=== PATIENT | female | born 1955 | race Caucasian/White ===

== ENCOUNTER 2024-03-07 17:17 | Observation (INO) | payer SELFPAY ==
[~2024-03-07] VITALS: Ht 170.2 cm; Wt 98.6 kg
[2024-03-07] MEDS ORDERED: NS 1,000 ML IV ONE (17:30)
[2024-03-07 17:38] LABS: BASO % 0.3 % (0.0-2.0); EOS # 0.1 K/mm3 (0.0-0.7); GRAN # 5.7 K/mm3 (1.4-6.5); GRAN % 61.3 % (42.2-75.2); HEMATOCRIT 50.1 % (37.0-47.0); LYMPH # 2.7 K/mm3 (1.2-3.4); LYMPH % 29.7 % (20.0-51.0); MEAN CELL VOLUME 89 fl (80.0-100.0); MEAN CORPUSCULAR HEMOGLOBIN 29 pg (27-31); MEAN CORPUSCULAR HGB CONC 32 g/dl (33.0-37.0); MEAN PLATELET VOLUME 9.2 fl (7.4-10.4); MONO # 0.7 K/mm3 (0.1-0.6); MONO % 7.3 % (1.7-9.3); PLATELET COUNT 233 K/mm3 (130-400); RED BLOOD COUNT 5.62 M/mm3 (4.10-5.30)
[2024-03-07 17:40] LABS: PROTHROMBIN TIME 11.4 SECONDS (9.7-12.8)
[2024-03-07 17:50] LABS: ALANINE AMINOTRANSFERASE 16 U/L (0-55); ALBUMIN 3.7 g/dL (3.4-4.8); ALKALINE PHOSPHATASE 55 U/L (40-150); ANION GAP 10 mmol/L (7-16); AST,SGOT 18 U/L (5-34); BILIRUBIN,TOTAL 0.5 mg/dL (0.2-1.2); BLOOD UREA NITROGEN 14 mg/dL (10-20); CHLORIDE 105 mEq/L (98-107); CREATININE, serum 1.08 mg/dL (0.57-1.11); GLUCOSE 79 mg/dL (70-99); POTASSIUM 4.7 mEq/L (3.5-4.5); SODIUM 136 mEq/L (136-145); TOTAL PROTEIN 7.6 g/dl (6.2-8.1)
[2024-03-07 17:58] LABS: ALCOHOL(ethanol),MEDICAL < 10 mg/dL (0-10); TROPONIN-I < 0.010 ng/mL (0.00-0.033)
[2024-03-07 18:13] LABS: COLLECTION METHOD CLEAN CATCH
[2024-03-07 18:31] LABS: TRICYCLIC ANTIDEPRESS URINE NEGATIVE (NEGATIVE)
[2024-03-07 18:32] LABS: PH 5.5 (5.0-8.5); URINE APPEARANCE Clear (CLEAR/HAZY); URINE BLOOD Negative (NEGATIVE); URINE COLOR YELLOW (YELLOW); URINE GLUCOSE Negative (NEGATIVE); URINE KETONE Negative (NEGATIVE); URINE NITRATE Negative (NEGATIVE); URINE PROTEIN(semi-quant) Negative (NEGATIVE)
[2024-03-07] MEDS ORDERED: PRINIVIL40 MG PO (18:48)
[2024-03-07] MEDS ORDERED: BACTRIM DS 8001 TAB PO (18:49)
[2024-03-07] MEDS ORDERED: MOBIC 7.5MG7.5 MG PO (18:49)
[2024-03-07] MEDS ORDERED: ASPIRIN 32325 MG/TAB PO (18:50)
[2024-03-07] MEDS ORDERED: EPA FISH OIL1 SGL PO (18:51)
[2024-03-07] MEDS ORDERED: SYNTHROID 0.0.025 MG PO (18:52)
[2024-03-07] MEDS ORDERED: KRILL OIL 5001 EACH PO (18:53)
[2024-03-07] MEDS ORDERED: TURMERIC500 MG PO (18:54)
[2024-03-07] MEDS ORDERED: NS 1,000 ML IV SCH (19:00)
[2024-03-07] MEDS ORDERED: Acetaminophen 325 MG TAB PO PRN (19:00)
[2024-03-07] MEDS ORDERED: Iohexol 350 - 100 ML VIAL IV ONE (19:12)
[2024-03-07] MEDS ORDERED: NS 64 ML IV SCH (19:12)
[2024-03-07] MEDS ORDERED: NORCO 325 MG-51 TAB PO (19:43)
[2024-03-07] MEDS ORDERED: FLEXERIL 1010 MG/TAB PO (19:44)
[2024-03-07] MEDS ORDERED: Cyclobenzaprine 10 MG TAB PO PRN (19:45)
[2024-03-07] MEDS ORDERED: Clopidogrel 300 MG DOSE (75 mg x 4 tabs) PO ONE (20:30)
[2024-03-07] MEDS ORDERED: Sulfamethoxazole/Trimethoprim 800-160 MG TAB PO SCH (21:00)
[2024-03-07] MEDS ORDERED: Atorvastatin 40 MG TAB PO SCH (21:00)
[2024-03-07 21:27] VITALS: BP 163/105; PULSE 89; TEMP 97.5
--- NOTE | 2024-03-07 21:30 | NUR ---
PT ARRIVED TO UNIT FROM ED AROUND 2129. ALERT AND ORIENTED ON ARRIVAL. WALKED FROM WHEELCHAIR TO BED, GAIT MODERATELY STEADY. SCORED 3 ON [facility] STROKE SCALE. NS TO PERIPHERAL IV PATENT, HAD VOIDED. VSS,ADMISSION ASSESSMENTS COMPLETE. DENIES PAIN AT THIS TIME, RESTING IN BED COMFORTABLY, FALL PRECAUTIONS IN PLACE. CALL LIGHT WITHIN REACH.
[2024-03-07 21:46] LABS: MAGNESIUM 1.8 mg/dL (1.6-2.6); PHOSPHOROUS 4.6 mg/dL (2.3-4.7)
[2024-03-07 23:12] VITALS: BP 170/100; PULSE 96; TEMP 97.4
[2024-03-08] VITALS (9 sets, daily range): BP systolic 139–163; BP diastolic 79–100; PULSE 69–95; TEMP 97.8–98
[2024-03-08] MEDS ORDERED: hydrALAZINE 20 MG/ML 1 ML VIAL IV PRN (00:15)
[2024-03-08 08:00] LABS: BASO % 0.4 % (0.0-2.0); EOS # 0.1 K/mm3 (0.0-0.7); HEMATOCRIT 43.8 % (37.0-47.0); HEMOGLOBIN 14.7 g/dl (12.5-16.0); LYMPH # 1.9 K/mm3 (1.2-3.4); LYMPH % 35.5 % (20.0-51.0); MEAN CELL VOLUME 88 fl (80.0-100.0); MEAN CORPUSCULAR HEMOGLOBIN 30 pg (27-31); MEAN CORPUSCULAR HGB CONC 34 g/dl (33.0-37.0); MEAN PLATELET VOLUME 9.3 fl (7.4-10.4); MONO # 0.4 K/mm3 (0.1-0.6); MONO % 7.7 % (1.7-9.3); PLATELET COUNT 192 K/mm3 (130-400); RED BLOOD COUNT 4.97 M/mm3 (4.10-5.30); REDCELL DISTRIBUTION WIDTH-CV 12.2 % (11.5-14.5)
--- NOTE | 2024-03-08 08:00 | NUR ---
PATIENT IS A&O. VSS. NO C/O CHEST PAIN, SOA OR NAUSEA. NPO FOR PENDING TESTS THIS AM. AM MEDS GIVEN WITH SIPS OTHERWISE NPO. IV FLUIDS INFUSING VIA PUMP INTO RIGHT FORARM IV. HEAD TO TOE ASSESSMENT COMPLETE. MRI CALLED AND PLAN IS TO SCAN AROUND 1100
[2024-03-08 08:16] LABS: CHOLESTEROL RISK RATIO 5.1
[2024-03-08] MEDS ORDERED: Atorvastatin 40 MG TAB PO ONE (08:30)
[2024-03-08] MEDS ORDERED: Omega-3 Fatty Acid Esters (OTC) 1,000 MG CAP PO SCH (09:00)
[2024-03-08] MEDS ORDERED: Nicotine 21 MG DAILY PATCH TD SCH (09:00)
[2024-03-08] MEDS ORDERED: Lisinopril 20 MG TAB PO SCH (09:00)
[2024-03-08] MEDS ORDERED: Clopidogrel 75 MG TAB PO SCH (09:00)
[2024-03-08] MEDS ORDERED: Aspirin 325 MG TAB PO SCH (09:00)
--- NOTE | 2024-03-08 09:42 | NUR ---
pull worker met with pt to discuss intake information. She does not have insurance and confirms this. She reports she did not know how to sign up for Medicare and never receieved anything in the mail. SW provided her with Medicare.gov information from the site stating how to sign up. SW provided the number for her to call. Pt verbalized understanding. Pt reports she lives alone in [place]. She sees Dr. Banda for PCP needs and obtains medications from [facility] in [place] with no difficulties. She states her daughter, Chelsea and Vandana are her contacts. She has two other children. Vandana is a [employer]PER PL[employer] and will arrive around 10am. She does not have a DPOA-HC and declines one. She reports to be independent with ADLS and uses no DME. She has no concerns for mobility. 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 CARLA informed her the financial advisors will meet with her to discuss FAA and Medicaid. She reports to get some VA income from her spouse. PT/OT Pending, IPR interested in pt Discharge Plan: tbd, home
--- NOTE | 2024-03-08 11:04 | NUR ---
PATIENT GOING DOWN TO MRI PER ORDERS VIA WC. MRI SCREENING TOOL IN ROOM. PATIENT NPO EXCEPT SIPS WITH PILLS. REPORT GIVEN TO HAM STRIPPER. PATIENT NOW OFF FLOOR.
[2024-03-08] MEDS ORDERED: Gadoterate 20 ML VIAL IV ONE (11:15)
--- NOTE | 2024-03-08 11:55 | NUR ---
RADIOLOGIST CALLED AND REPORTED SMALL SUBACUTE INFARCT SEEN ON SCAN. NOTIFIED HOSPITALIST TO REVIEW. PATIENT BACK IN ROOM
--- NOTE | 2024-03-08 14:31 | NUR ---
Vandana, daughter contacted [employer] and advised they have an appointment with social security on March 19.
[2024-03-08] MEDS ORDERED: PLAVIX 75MG TAB75 MG PO (15:37)
[2024-03-08] MEDS ORDERED: ASPIRIN E.C. 8181 MG PO (15:37)
[2024-03-08] MEDS ORDERED: LIPITOR 40MG TA40 MG PO (15:38)
--- NOTE | 2024-03-08 17:00 | NUR ---
PATIENT'S DAUGHTER ASKING ABOUT DISCHARGE STATING THEY GOT A NOTIFICATION FROM THEIR PHARMACY THAT DISCHARGE MEDS WERE SENT AND SHES WONDERING ABOUT LEAVING. NURSING CHECKED, ALL THE DISCHARGE ORDERS ARE FILLED OUT BUT NO DISCHARGE ORDER ENTERED. DAUGHTER ALSO ASKING WHERE STROKE WAS AND STATES SHE IS A NEUROLOGY NURSE PRACTIONER, ABBY SAPP TO COME TALK WITH PATIENT. NEURO CONSULT PENDING.
[2024-03-08] MEDS ORDERED: amLODIPine 10 MG TAB PO ONE (17:45)
[2024-03-08] MEDS ORDERED: NORVASC 10MG10 MG PO (17:45)
--- NOTE | 2024-03-08 18:35 | NUR ---
PATIENT DISCHARGING, GAVE DISCHARGE INSTRUCTIONS, E-SCRIPTS SENT AND DISCUSSED F/U WITH PCP. ANSWERED QUESTIONS/CONCERNS. DC'D RIGHT FORARM IV AND COVERED SITE WITH [employer]. PATIENT IS DRESSED, PACKED AND ESCORTED OUT VIA WC TO PERSONAL VEHICLE WITH FAMILY.
== END 2024-03-08 18:35 | disposition home or self-care (01) ==
LOC: COL.ER 17:17 → MEDICAL 20:32
PROVIDERS: Nurse Practitioner Family; Physician Assistant; ADMIT Internal Medicine
DX: I65.23 Occlusion and stenosis of bilateral carotid arteries (principal); N39.0 Urinary tract infection, site not specified; I10 Essential (primary) hypertension; E03.9 Hypothyroidism, unspecified; F17.210 Nicotine dependence, cigarettes, uncomplicated; M19.90 Unspecified osteoarthritis, unspecified site; Z79.890 Hormone replacement therapy; Z79.899 Other long term (current) drug therapy
CPT/HCPCS: A9575; G0378; J1650; J7030; Q3014; Q9967